=== PATIENT | female | born 1990 | race Two or more races ===

== ENCOUNTER 2020-02-19 12:49 | Emergency (ER) | payer OTHER ==
[~2020-02-19] VITALS: Ht 162.6 cm; Wt 56.7 kg
== END 2020-02-19 21:22 | disposition home or self-care (01) ==
LOC: ER 12:49
DX: K60.0 Acute anal fissure (principal); K64.4 Residual hemorrhoidal skin tags
CPT/HCPCS: 74177; Q9965

== ENCOUNTER 2020-02-21 00:49 | Emergency (ER) | payer OTHER ==
[~2020-02-21] VITALS: Ht 162.6 cm; Wt 56.7 kg
== END 2020-02-21 08:37 | disposition home or self-care (01) ==
LOC: ER 00:49
DX: K60.0 Acute anal fissure (principal)

== ENCOUNTER 2020-03-01 16:45 | Inpatient (IN) | payer OTHER ==
[~2020-03-01] VITALS: Ht 162.6 cm; Wt 56.7 kg
== END 2020-03-04 12:11 | disposition home or self-care (01) | DRG 390 ==
LOC: ER 16:45 → SURH 23:18
PROVIDERS: ADMIT Surgery; ATTEND Surgery
PROC: 0DCP7ZZ Extirpation of Matter from Rectum, Via Natural or Artificial Opening (ICD-10-PCS; principal; 2020-03-01)
PROC: 3E0T3BZ Introduction of Anesthetic Agent into Peripheral Nerves and Plexi, Percutaneous Approach (ICD-10-PCS; 2020-03-01)
DX: K56.41 Fecal impaction (principal); K60.1 Chronic anal fissure; Z20.828 Contact with and (suspected) exposure to other viral communicable diseases

== ENCOUNTER 2020-04-18 19:09 | Emergency (ER) | payer OTHER ==
[~2020-04-18] VITALS: Ht 162.6 cm; Wt 56.7 kg
== END 2020-04-18 21:54 | disposition home or self-care (01) ==
LOC: ER 19:09
DX: M94.0 Chondrocostal junction syndrome [Tietze] (principal)

== ENCOUNTER 2023-10-13 22:46 | Emergency (ER) | payer OTHER ==
[~2023-10-13] VITALS: Ht 160 cm; Wt 54.4 kg
[2023-10-14] MEDS ORDERED: METOCLOPRAMIDE HCL 5 MG/ML VIAL IM STA (00:20)
[2023-10-14] MEDS ORDERED: ONDANSETRON HCL 2 MG/ML VIAL IV STA (00:23)
[2023-10-14] MEDS ORDERED: RINGERS SOLUTION,LACTATED 1,000 ML IV STA (00:23)
[2023-10-14] MEDS ORDERED: FAMOtidine 10 MG/ML (4ML VIAL) IV PUSH STA (00:24)
[2023-10-14 00:49] LABS: PH,URINE 5.5 (5.0-8.0); URINE APPEARANCE Cloudy; URINE BILIRRUBIN Small (NEGATIVE); URINE BLOOD Moderate; URINE COLOR Dark Yellow; URINE GLUCOSE Negative (NEGATIVE); URINE LEUKOCYTE Small; URINE NITRATE Negative; URINE PROTEIN 30 (NEGATIVE)
[2023-10-14 00:52] LABS: URINE BACTERIA 1650.4 uL (0.0-1933); URINE EPITHELIAL CELLS 53.1 uL (0.0-38.8); URINE RBC 80.1 uL (0.0-20.8); URINE WBC 59.9 uL (0.0-23.2)
[2023-10-14 01:01] LABS: HEMATOCRIT 38.3 % (36.0-45.00); HEMOGLOBIN 12.9 g/dL (12.0-15.00); MEAN CELL VOLUME 91.2 fL (80.00-100.00); MEAN CORPUSCULAR HEMOGLOBIN 30.8 pg (27.00-32.0); MEAN CORPUSCULAR HGB CONC 33.7 g/dl (32.0-36.0); PLATELET COUNT 231 K/uL (150-450); RED CELL DISTRIBUTION WIDTH 13.1 % (11.5-14.5)
[2023-10-14 01:20] LABS: ALBUMIN 3.9 gm/dL (3.4-5.0); BILIRUBIN TOTAL 0.58 mg/dL (0.3-1.2); CALCIUM 9.2 mg/dL (8.5-10.1); GFR 148.04; GLOBULINA 4.2 G/DL (2.4-3.5); POTASSIUM 4.09 mEq/L (3.5-5.1); TOTAL PROTEIN 8.1 gm/dL (6.4-8.2)
[2023-10-14 01:23] LABS: CREATININE SERUM 0.48 mg/dL (0.55-1.02)
[2023-10-14] MEDS ORDERED: LACTULOSE 10 G/15 ML ML PO STA (02:28)
[2023-10-14] MEDS ORDERED: MAGNESIUM HYDROXIDE 400 MG/5 ML ML PO STA (02:29)
[2023-10-14] MEDS ORDERED: MINERAL OIL 30 ML BLIST.PACK PO STA (02:29)
== END 2023-10-14 03:39 | disposition home or self-care (01) ==
LOC: ER 22:47
DX: O26.891 Other specified pregnancy related conditions, first trimester (principal); K59.01 Slow transit constipation; Z3A.12 12 weeks gestation of pregnancy; Z88.0 Allergy status to penicillin

== ENCOUNTER 2023-10-16 14:50 | Outpatient (CLI) | payer OTHER | END 2023-10-16 14:51 | disposition home or self-care (01) | LOC: PRENATAL 14:50 | PROVIDERS: ATTEND Obstetrics & Gynecology Maternal & Fetal Medicine | DX: O36.80X0 Pregnancy with inconclusive fetal viability, not applicable or unspecified (principal); O21.0 Mild hyperemesis gravidarum; O34.11 Maternal care for benign tumor of corpus uteri, first trimester; Z36.82 Encounter for antenatal screening for nuchal translucency; Z3A.12 12 weeks gestation of pregnancy ==

== ENCOUNTER 2023-10-25 11:49 | Emergency (ER) | payer OTHER ==
[~2023-10-25] VITALS: Ht 160 cm; Wt 54.0 kg
[2023-10-25] MEDS ORDERED: PROMETHAZINE HCL 25 MG/ML AMPUL IM ONE (14:15)
[2023-10-25] MEDS ORDERED: FAMOTIDINE/PF 20 MG/2 ML VIAL IV ONE (14:15)
[2023-10-25] MEDS ORDERED: PROMETHAZINE HCL 25 MG/ML AMPUL ONE (14:26)
[2023-10-25] MEDS ORDERED: FAMOtidine 200mg/20ml VIAL ONE (14:26)
[2023-10-25 15:32] LABS: HEMATOCRIT 37.1 % (36.0-45.00); HEMOGLOBIN 12.7 g/dL (12.0-15.00); MEAN CORPUSCULAR HGB CONC 34.4 g/dl (32.0-36.0); PLATELET COUNT 211 K/uL (150-450); RED BLOOD COUNT 3.99 M/uL (4.00-6.00); URINE APPEARANCE Clear; URINE BILIRRUBIN Negative (NEGATIVE); URINE BLOOD NHT; URINE COLOR Yellow; URINE GLUCOSE Negative (NEGATIVE); URINE LEUKOCYTE Negative; URINE NITRATE Negative; URINE PROTEIN Negative (NEGATIVE); URINE UROBILINOGEN 0.2 E.U./dl
[2023-10-25 15:36] LABS: URINE BACTERIA 549.3 uL (0.0-1933); URINE EPITHELIAL CELLS 19.9 uL (0.0-38.8); URINE RBC 13.7 uL (0.0-20.8); URINE WBC 13.5 uL (0.0-23.2)
[2023-10-25 15:45] LABS: CALCIUM 9.2 mg/dL (8.5-10.1); CREATININE SERUM 0.44 mg/dL (0.55-1.02); GFR 163.68; POTASSIUM 3.59 mEq/L (3.5-5.1)
== END 2023-10-25 16:12 ==
LOC: ER 11:50
PROVIDERS: General Practice
DX: G43.909 Migraine, unspecified, not intractable, without status migrainosus (principal); K29.70 Gastritis, unspecified, without bleeding; Z88.0 Allergy status to penicillin

== ENCOUNTER 2023-10-29 11:37 | Outpatient (CLI) | payer OTHER | END 2023-10-29 11:38 | disposition home or self-care (01) | LOC: PRENATAL 11:37 | PROVIDERS: ATTEND Obstetrics & Gynecology Maternal & Fetal Medicine | DX: Z76.1 Encounter for health supervision and care of foundling (principal) ==

== ENCOUNTER → 2023-12-04 08:08 | Outpatient (CLI) | payer OTHER | END | disposition home or self-care (01) | LOC: PRENATAL 08:08 | PROVIDERS: ATTEND Obstetrics & Gynecology Maternal & Fetal Medicine | DX: O44.00 Complete placenta previa NOS or without hemorrhage, unspecified trimester (principal); O09.519 Supervision of elderly primigravida, unspecified trimester; O09.819 Supervision of pregnancy resulting from assisted reproductive technology, unspecified trimester; Z3A.19 19 weeks gestation of pregnancy ==

== ENCOUNTER 2024-01-30 09:17 | Outpatient (CLI) | payer OTHER | END 2024-01-30 09:19 | disposition home or self-care (01) | LOC: PRENATAL 09:17 | PROVIDERS: ATTEND Obstetrics & Gynecology Maternal & Fetal Medicine | DX: O26.849 Uterine size-date discrepancy, unspecified trimester (principal); O09.519 Supervision of elderly primigravida, unspecified trimester; O34.10 Maternal care for benign tumor of corpus uteri, unspecified trimester; O09.819 Supervision of pregnancy resulting from assisted reproductive technology, unspecified trimester; O36.5990 Maternal care for other known or suspected poor fetal growth, unspecified trimester, not applicable or unspecified; O99.019 Anemia complicating pregnancy, unspecified trimester; Z3A.26 26 weeks gestation of pregnancy ==

== ENCOUNTER 2024-02-06 08:25 | Outpatient (CLI) | payer OTHER | END 2024-02-06 08:26 | disposition home or self-care (01) | LOC: PRENATAL 08:25 | PROVIDERS: ATTEND Obstetrics & Gynecology Maternal & Fetal Medicine | DX: O36.8199 Decreased fetal movements, unspecified trimester, other fetus (principal); O09.519 Supervision of elderly primigravida, unspecified trimester; O09.819 Supervision of pregnancy resulting from assisted reproductive technology, unspecified trimester; O34.10 Maternal care for benign tumor of corpus uteri, unspecified trimester; O36.5990 Maternal care for other known or suspected poor fetal growth, unspecified trimester, not applicable or unspecified; O99.019 Anemia complicating pregnancy, unspecified trimester; Z3A.29 29 weeks gestation of pregnancy ==

== ENCOUNTER 2024-02-13 08:19 | Outpatient (CLI) | payer OTHER | END 2024-02-13 08:20 | disposition home or self-care (01) | LOC: PRENATAL 08:19 | PROVIDERS: ATTEND Obstetrics & Gynecology Maternal & Fetal Medicine | DX: O36.8199 Decreased fetal movements, unspecified trimester, other fetus (principal); O09.519 Supervision of elderly primigravida, unspecified trimester; O34.10 Maternal care for benign tumor of corpus uteri, unspecified trimester; O36.5990 Maternal care for other known or suspected poor fetal growth, unspecified trimester, not applicable or unspecified; O99.019 Anemia complicating pregnancy, unspecified trimester; Z3A.30 30 weeks gestation of pregnancy ==

== ENCOUNTER 2024-02-20 08:19 | Outpatient (CLI) | payer OTHER | END 2024-02-20 08:22 | disposition home or self-care (01) | LOC: PRENATAL 08:19 | PROVIDERS: ATTEND Obstetrics & Gynecology Maternal & Fetal Medicine | DX: O26.849 Uterine size-date discrepancy, unspecified trimester (principal); O36.8199 Decreased fetal movements, unspecified trimester, other fetus; O09.519 Supervision of elderly primigravida, unspecified trimester; O09.819 Supervision of pregnancy resulting from assisted reproductive technology, unspecified trimester; O34.10 Maternal care for benign tumor of corpus uteri, unspecified trimester; O36.5990 Maternal care for other known or suspected poor fetal growth, unspecified trimester, not applicable or unspecified; O99.019 Anemia complicating pregnancy, unspecified trimester; Z3A.29 29 weeks gestation of pregnancy ==

== ENCOUNTER 2024-02-27 08:24 | Outpatient (CLI) | payer OTHER | END 2024-02-27 08:25 | disposition home or self-care (01) | LOC: PRENATAL 08:24 | PROVIDERS: ATTEND Obstetrics & Gynecology Maternal & Fetal Medicine | DX: O36.8199 Decreased fetal movements, unspecified trimester, other fetus (principal); O09.519 Supervision of elderly primigravida, unspecified trimester; O09.819 Supervision of pregnancy resulting from assisted reproductive technology, unspecified trimester; O34.10 Maternal care for benign tumor of corpus uteri, unspecified trimester; O36.5990 Maternal care for other known or suspected poor fetal growth, unspecified trimester, not applicable or unspecified; O99.019 Anemia complicating pregnancy, unspecified trimester; Z3A.32 32 weeks gestation of pregnancy ==

== ENCOUNTER 2024-03-03 08:39 | Outpatient (CLI) | payer OTHER | END 2024-03-03 08:40 | disposition home or self-care (01) | LOC: PRENATAL 08:39 | PROVIDERS: ATTEND Obstetrics & Gynecology Maternal & Fetal Medicine | DX: O36.8199 Decreased fetal movements, unspecified trimester, other fetus (principal); O09.519 Supervision of elderly primigravida, unspecified trimester; O09.819 Supervision of pregnancy resulting from assisted reproductive technology, unspecified trimester; O34.10 Maternal care for benign tumor of corpus uteri, unspecified trimester; O36.5990 Maternal care for other known or suspected poor fetal growth, unspecified trimester, not applicable or unspecified; O99.019 Anemia complicating pregnancy, unspecified trimester; Z3A.32 32 weeks gestation of pregnancy ==

== ENCOUNTER 2024-03-12 08:41 | Outpatient (CLI) | payer OTHER | END 2024-03-12 08:42 | disposition home or self-care (01) | LOC: PRENATAL 08:41 | PROVIDERS: ATTEND Obstetrics & Gynecology Maternal & Fetal Medicine | DX: O26.849 Uterine size-date discrepancy, unspecified trimester (principal); O36.8199 Decreased fetal movements, unspecified trimester, other fetus; O09.519 Supervision of elderly primigravida, unspecified trimester; O09.819 Supervision of pregnancy resulting from assisted reproductive technology, unspecified trimester; Z3A.31 31 weeks gestation of pregnancy ==

== ENCOUNTER 2024-03-18 11:15 | Outpatient (CLI) | payer OTHER | END 2024-03-18 11:18 | disposition home or self-care (01) | LOC: PRENATAL 11:15 | PROVIDERS: ATTEND Obstetrics & Gynecology Maternal & Fetal Medicine | DX: O36.8199 Decreased fetal movements, unspecified trimester, other fetus (principal); O09.519 Supervision of elderly primigravida, unspecified trimester; O09.819 Supervision of pregnancy resulting from assisted reproductive technology, unspecified trimester; O34.10 Maternal care for benign tumor of corpus uteri, unspecified trimester; O36.5990 Maternal care for other known or suspected poor fetal growth, unspecified trimester, not applicable or unspecified; O99.019 Anemia complicating pregnancy, unspecified trimester; Z3A.34 34 weeks gestation of pregnancy ==

== ENCOUNTER 2024-03-29 09:15 | Inpatient (IN) | payer OTHER ==
[~2024-03-29] VITALS: Ht 160 cm; Wt 2.3 kg
[2024-03-29 11:04] LABS: PH,URINE 6.5 (5.0-8.0); URINE APPEARANCE Clear; URINE BILIRRUBIN Negative (NEGATIVE); URINE BLOOD Negative; URINE COLOR Yellow; URINE GLUCOSE Negative (NEGATIVE); URINE KETONE Negative (NEGATIVE); URINE LEUKOCYTE Small; URINE NITRATE Negative; URINE PROTEIN Negative (NEGATIVE); URINE UROBILINOGEN 0.2 E.U./dl
[2024-03-29 11:05] LABS: URINE BACTERIA 1347.3 uL (0.0-1933); URINE EPITHELIAL CELLS 57.7 uL (0.0-38.8); URINE RBC 6.3 uL (0.0-20.8); URINE WBC 44.1 uL (0.0-23.2)
[2024-03-29 11:07] LABS: HEMOGLOBIN 11.6 g/dL (12.0-15.00); MEAN CELL VOLUME 90.5 fL (80.00-100.00); MEAN CORPUSCULAR HEMOGLOBIN 29.9 pg (27.00-32.0); MEAN CORPUSCULAR HGB CONC 33.1 g/dl (32.0-36.0); PLATELET COUNT 182 K/uL (150-450); RED BLOOD COUNT 3.87 M/uL (4.00-6.00); RED CELL DISTRIBUTION WIDTH 14.8 % (11.5-14.5); URINE CAST 0.14 uL (0.0-1.40)
[2024-03-29 11:19] LABS: INR 0.94; PARTIAL THROMBOPLASTIN TIME 25.8 SECONDS (22.0-34.0); PROTHROMBIN TIME 10.3 SECONDS (9.0-11.5)
[2024-03-29 12:06] LABS: ALBUMIN 3.3 gm/dL (3.4-5.0); BILIRUBIN TOTAL 0.38 mg/dL (0.3-1.2); CREATININE SERUM 0.41 mg/dL (0.55-1.02); GFR 176.54; GLOBULINA 3.7 G/DL (2.4-3.5); POTASSIUM 4.75 mEq/L (3.5-5.1)
[2024-04-02 05:59] VITALS: BP 116/80
[2024-04-02] MEDS ORDERED: PRENATAL + DHA1 EAC1 PO (06:33)
[2024-04-02] MEDS ORDERED: OXYTOCIN 10 UNITS/ML VIAL ONE (07:00)
[2024-04-02] MEDS ORDERED: CLINDAMYCIN PHOSPHATE 150 MG/ML (900mg) IV SCH (07:15)
[2024-04-02] MEDS ORDERED: RINGERS SOLUTION,LACTATED 1,000 ML IV SCH (07:15)
[2024-04-02 07:18] VITALS: BP 108/74
[2024-04-02 07:29] LABS: HEMATOCRIT 35.1 % (36.0-45.00); HEMOGLOBIN 11.9 g/dL (12.0-15.00); MEAN CELL VOLUME 88.9 fL (80.00-100.00); MEAN CORPUSCULAR HGB CONC 33.8 g/dl (32.0-36.0); PLATELET COUNT 194 K/uL (150-450); RED BLOOD COUNT 3.95 M/uL (4.00-6.00); RED CELL DISTRIBUTION WIDTH 14.9 % (11.5-14.5)
[2024-04-02 07:30] LABS: PH,URINE 5.5 (5.0-8.0); URINE APPEARANCE Cloudy; URINE BILIRRUBIN Negative (NEGATIVE); URINE BLOOD Negative; URINE COLOR Yellow; URINE GLUCOSE Negative (NEGATIVE); URINE KETONE 15 (NEGATIVE); URINE LEUKOCYTE Small; URINE NITRATE Negative; URINE PROTEIN Negative (NEGATIVE); URINE UROBILINOGEN 0.2 E.U./dl
[2024-04-02 07:34] LABS: URINE BACTERIA 4079.5 uL (0.0-1933); URINE EPITHELIAL CELLS 98.6 uL (0.0-38.8); URINE RBC 6.3 uL (0.0-20.8); URINE WBC 160.7 uL (0.0-23.2)
[2024-04-02 07:53] LABS: INR 0.94; PARTIAL THROMBOPLASTIN TIME 26.7 SECONDS (22.0-34.0); PROTHROMBIN TIME 10.3 SECONDS (9.0-11.5)
[2024-04-02] MEDS ORDERED: ERYTHROMYCIN BASE OPHT 1GM EACH TUBE OP ONE (08:15)
[2024-04-02] MEDS ORDERED: OXYTOCIN 10 UNITS/ML VIAL IV ONE (08:15)
[2024-04-02 08:25] LABS: URINE CAST 0.44 uL (0.0-1.40)
[2024-04-02 08:45] LABS: ALBUMIN 3.2 gm/dL (3.4-5.0); BILIRUBIN TOTAL 0.4 mg/dL (0.3-1.2); CREATININE SERUM 0.46 mg/dL (0.55-1.02); GFR 154.58; GLOBULINA 3.7 G/DL (2.4-3.5); POTASSIUM 4.01 mEq/L (3.5-5.1); TOTAL PROTEIN 6.9 gm/dL (6.4-8.2)
[2024-04-02] MEDS ORDERED: CHLORHEXIDINE GLUCONATE 120 ML BOTTLE TP SCH (09:00)
[2024-04-02] MEDS ORDERED: FAMOTIDINE/PF 20 MG/2 ML VIAL IV SCH (09:03)
[2024-04-02] MEDS ORDERED: MORPHINE SULFATE 4 MG/ML CARTRIDGE IV PRN (09:15)
[2024-04-02] MEDS ORDERED: KETOROLAC TROMETHAMINE 30 MG VIAL IV SCH (09:15)
[2024-04-02] MEDS ORDERED: ONDANSETRON HCL 2 MG/ML VIAL IV PRN (09:15)
[2024-04-02] MEDS ORDERED: FAMOTIDINE/PF 20 MG/2 ML VIAL ONE (09:43)
[2024-04-02] MEDS ORDERED: KETOROLAC TROMETHAMINE 30 MG VIAL ONE (09:43)
[2024-04-02 11:07] VITALS: BP 130/81
[2024-04-02 13:36] LABS: HEMOGLOBIN 11.4 g/dL (12.0-15.00); MEAN CORPUSCULAR HEMOGLOBIN 29.9 pg (27.00-32.0); MEAN CORPUSCULAR HGB CONC 33.5 g/dl (32.0-36.0); PLATELET COUNT 171 K/uL (150-450); RED BLOOD COUNT 3.82 M/uL (4.00-6.00)
[2024-04-02 15:58] VITALS: BP 119/60
[2024-04-03] MEDS ORDERED: OxyCODONE HCL/APAP UD (PERCOCET) PO PRN
[2024-04-03 01:14] VITALS: BP 97/67
[2024-04-03 07:55] VITALS: BP 111/77
[2024-04-03] MEDS ORDERED: SIMETHICONE 125 MG CAPSULE PO SCH (09:00)
[2024-04-03] MEDS ORDERED: IBUprofen 800 MG TABLET PO SCH (09:00)
[2024-04-03] MEDS ORDERED: DOCUSATE SODIUM 100MG CAP PO SCH (09:00)
[2024-04-03] MEDS ORDERED: CYCLOBENZAPRINE HCL 5 MG TABLET PO PRN (13:30)
[2024-04-03 16:00] VITALS: BP 112/77
[2024-04-04 00:17] VITALS: BP 104/71
[2024-04-04 04:00] VITALS: BP 110/70
[2024-04-04 08:29] VITALS: BP 112/77
[2024-04-04 12:34] VITALS: BP 97/67
== END 2024-04-04 15:50 | disposition home or self-care (01) | DRG 788 ==
LOC: LDR 04-02 06:30 → O/R 04-02 08:04 → OB/GYN 04-02 08:56
PROVIDERS: ADMIT General Practice; ATTEND General Practice
PROC: 4A1HXCZ Monitoring of Products of Conception, Cardiac Rate, External Approach (ICD-10-PCS; 2024-04-02)
PROC: 10D00Z1 Extraction of Products of Conception, Low, Open Approach (ICD-10-PCS; principal; 2024-04-02 11:30)
DX: O36.5930 Maternal care for other known or suspected poor fetal growth, third trimester, not applicable or unspecified (principal); Z3A.37 37 weeks gestation of pregnancy; Z37.0 Single live birth; Z20.822 Contact with and (suspected) exposure to COVID-19

== ENCOUNTER 2024-03-29 12:00 | Outpatient (CLI) | payer OTHER | END 2024-03-29 12:02 | disposition home or self-care (01) | LOC: PRENATAL 12:00 | PROVIDERS: ATTEND Obstetrics & Gynecology Maternal & Fetal Medicine | DX: O36.8199 Decreased fetal movements, unspecified trimester, other fetus (principal); O09.519 Supervision of elderly primigravida, unspecified trimester; O09.819 Supervision of pregnancy resulting from assisted reproductive technology, unspecified trimester; O34.10 Maternal care for benign tumor of corpus uteri, unspecified trimester; O36.5990 Maternal care for other known or suspected poor fetal growth, unspecified trimester, not applicable or unspecified; O99.019 Anemia complicating pregnancy, unspecified trimester; Z3A.36 36 weeks gestation of pregnancy ==